=== PATIENT | male | born 1960 | race African-American/Black ===

== ENCOUNTER 2016-07-21 18:34 | Emergency (ER) | payer OTHER, MEDICAID ==
[~2016-07-21] VITALS: Ht 172.7 cm; Wt 106.6 kg
[2016-07-21 19:27] VITALS: BP 144/77
--- NOTE | 2016-07-21 21:05 | NUR ---
PATIENT LEFT WITHOUT BEING SEEN BY DR. DE JESUS. NO FURTHER CARE PROVIDED FOR PATIENT.
== END 2016-07-21 21:05 | disposition left against medical advice (07) ==
LOC: MED 18:34
DX: M79.605 Pain in left leg (principal); Z53.21 Procedure and treatment not carried out due to patient leaving prior to being seen by health care provider